=== PATIENT | female | born 2000 | race Asian ===

== ENCOUNTER 2024-12-04 16:55 | Emergency (ER) | payer SELFPAY ==
[~2024-12-04] VITALS: Ht 165.1 cm; Wt 44.0 kg
[2024-12-04 17:13] VITALS: O2SAT 99
[2024-12-04] MEDS ORDERED: IBUP-1455 MT (19:33)
[2024-12-04] MEDS: IBUPROFEN 600MG TABLET PO ONE (19:58)
[2024-12-04 20:01] VITALS: BP 100/68; PULSE 88; RESP 16; TEMP 36.9; O2SAT 99
== END 2024-12-04 20:03 | disposition home or self-care (01) ==
LOC: ER 16:55
DX: S93.402A Sprain of unspecified ligament of left ankle, initial encounter (principal); W01.0XXA Fall on same level from slipping, tripping and stumbling without subsequent striking against object, initial encounter; Y93.89 Activity, other specified; Y92.89 Other specified places as the place of occurrence of the external cause; Y99.8 Other external cause status
CPT/HCPCS: 73610; 99283